=== PATIENT | female | born 1965 | race Two or more races ===

== ENCOUNTER 2019-07-12 22:50 | Emergency (ER) | payer OTHER ==
[~2019-07-12] VITALS: Ht 162.6 cm; Wt 80.7 kg
[2019-07-13] MEDS ORDERED: ACETAMINOPHEN 500 MG TAB PO ONE ×2 (00:24→00:30)
[2019-07-13] MEDS ORDERED: cloNIDine HCL 0.1 MG TAB ONE (01:33)
[2019-07-13] MEDS ORDERED: cloNIDine HCL 0.1 MG TAB PO ONE (01:45)
[2019-07-13 01:48] VITALS: BP 184/91
== END 2019-07-13 05:24 | disposition home or self-care (01) ==
LOC: ER 22:55
DX: M54.2 Cervicalgia (principal); M54.9 Dorsalgia, unspecified; M79.602 Pain in left arm; V43.52XA Car driver injured in collision with other type car in traffic accident, initial encounter; Y93.89 Activity, other specified; Y92.410 Unspecified street and highway as the place of occurrence of the external cause; Y99.8 Other external cause status
CPT/HCPCS: 70450; 70486; 72125; 72128; 72131; 73030; 73080; 73200